=== PATIENT | male | born 1960 ===

== ENCOUNTER 2020-11-04 13:50 | Emergency (ER) | payer MEDICAID ==
--- NOTE | 2020-11-04 14:10 | NUR ---
NO ANSWER FROM TRIAGE
--- NOTE | 2020-11-04 14:14 | NUR ---
NO ANSWER FROM TRIAGE
--- NOTE | 2020-11-04 14:23 | NUR ---
PT NOT FOUND IN WAITING AREA, CHILD AREA, NOR BATHROOM
--- NOTE | 2020-11-04 14:23 | NUR ---
NO ANSWER FROM TRIAGE
== END 2020-11-04 16:50 | disposition left against medical advice (07) ==
LOC: ED 16:43
DX: Z53.21 Procedure and treatment not carried out due to patient leaving prior to being seen by health care provider (principal)